=== PATIENT | male | born 2000 | race Caucasian/White ===

== ENCOUNTER 2021-05-29 21:41 | Emergency (ER) | payer OTHER, SELFPAY ==
[2021-05-29 22:06] VITALS: BP 143/74; PULSE 98; RESP 18; TEMP 36.6; O2SAT 99; BMI 23.4
[2021-05-29 23:58] VITALS: BP 119/70; PULSE 76; RESP 14; O2SAT 99
--- NOTE | 2021-05-29 23:59 | PC.NURSE ---
This RN and Dr Orozco to bedside for rectal exam.
--- NOTE | 2021-05-30 | ED_ITS ---
HPI - General Adult General Chief complaint: GI Bleed Stated complaint: rectal bleeding Time Seen by Provider: 05/29/21 23:58 Source: patient Mode of arrival: ambulatory History of Present Illness HPI narrative: 20-year-old male without significant past medical history but has had a prior episode of isolated rectal bleeding and was worked up at that acute findings were noted. Patient states that this evening he had a bowel movement which involved him having some difficulty and then afterwards noted blood in the toilet but not mixed with stool. Otherwise he denies rectal pain at that time eyes abdominal pain as well as no nausea or vomiting. Patient is unsure of any family history of IBD. Patient states that the blood was only on the toilet paper and there has been no contamination of his clothing. Related Data Allergies Allergy/AdvReac Type Severity Reaction Status Date / Time No Known Allergies Allergy Unverified 04/15/20 17:01 Review of Systems Review of Systems: Pertinent positives and negatives as stated in HPI 10 point review of systems is otherwise negative. PMFSH Past Medical History Source: nursing notes reviewed Medical History No known health problems Social History Social History Patient Tobacco Use Status: Never used Tobacco Use of substances other than those prescribed or required for medical reasons: No Physical Exam Vital Signs: Vital Signs: Last Vital Signs Temp 97.8 F 05/29/21 22:06 Pulse 76 05/29/21 23:58 Resp 14 05/29/21 23:58 BP 119/70 05/29/21 23:58 Pulse Ox 99 05/29/21 23:58 Body Mass Index 23.4 VITAL SIGNS: Reviewed. GENERAL: Well developed, well nourished, in no acute distress. HEAD: Normocephalic/atraumatic EYES: PERRLA, EOMI OROPHARYNX: no oral lesions noted, posterior pharynx clear LUNGS: Normal breath sounds. No adventitious sounds or accessory muscle use. SpO2<99> CARDIOVASCULAR: Regular rate and rhythm without noted murmurs ABDOMEN: Soft, non-tender, non-distended with bowel sounds. [place]: No inflamed external hemorrhoids noted, no fissures, no inflamed internal hemorrhoids and there is brown stool without gross blood and good rectal tone. NEUROLOGIC: Alert and oriented x 4. Course Course Course Narrative: 20-year-old male with history and clinical presentation consistent with hemorrhoidal bleeding and no evidence of persistence. No evidence of thrombosed hemorrhoid. Review of all investigations without acute findings, specifically guaiac of stool is negative. Patient informed of all results and recommended to follow-up with his primary care provider in the morning for further outpatient management. Medical Decision Making Lab Data Result diagrams: 05/30/21 00:05 05/30/21 00:05 Labs: Lab Results 05/30/21 05/30/21 05/30/21 Range/Units 00:05 00:05 00:05 WBC 10.5 (4.8-10.8) X10*3/uL RBC 6.37 H (4.60-5.80) X10*6/uL Hgb 13.1 L (14.0-18.0) g/dl Hct 42.1 (42.0-52.0) % MCV 66.1 L (80.0-98.0) fL MCH 20.6 L (27.0-33.0) pg MCHC 31.1 (31.0-36.0) g/dl RDW 15.9 (11.0-16.0) % Plt Count 192 (160-400) X10*3/uL MPV Not Reportable Immature Gran % (Auto) 0.2 (0.0-0.4) % Neut % (Auto) 61.5 (45-73) % Lymph % (Auto) 30.3 (20-40) % [place] % (Auto) 6.7 (2-11) % Eos % (Auto) 1.0 (0-4) % Baso % (Auto) 0.3 (0-2) % Lymph # (Auto) 3.2 (1.2-4.9) X10*3/uL [place] # (Auto) 0.7 (0.1-1.2) X10*3/uL Eos # (Auto) 0.1 (0.0-0.4) X10*3/uL Baso # (Auto) 0.0 (0.0-0.2) X10*3/uL Abs Immat Gran (auto) 0.02 (0.00-0.03) X10*3/uL Absolute Neuts (auto) 6.44 (2.0-8.3) x10*3/uL Absolute Nucleated RBC 0.000 (0.0-0.012) X10*3/uL Nucleated RBC % (auto) 0.0 (0.0-0.2) /100WBC Sodium 141 (135-145) mmol/L Potassium 3.5 (3.3-5.1) mmol/L Chloride 108 (96-108) mmol/L Carbon Dioxide 24 (22-29) mmol/L Anion Gap 13 (12-20) BUN 8 L (9-16) mg/dL Creatinine 0.94 (0.5-1.4) mg/dL Estim Creat Clear Calc 109.9 Estimated GFR > 60 Random Glucose 90 (60-115) mg/dL Calcium 9.3 (8.4-10.2) mg/dL Total Bilirubin 0.5 (0.0-1.0) mg/dL AST 14 (5-37) U/L ALT 9 (0-40) U/L Alkaline Phosphatase 65 (39-117) U/L Total Protein 7.2 (6.5-8.0) g/dL Albumin 4.8 (3.5-5.0) g/dL Stool Occult Blood NEGATIVE (NEGATIVE) Discharge Plan Discharge Clinical Impression: Hematochezia, Hemorrhoids Patient Disposition: Home, Self-Care Instructions: Rectal Bleeding (ED) Additional Instructions: Call your primary care provider in the morning and set up an appointment for re- evaluation and discussion about further outpatient management/workup. Return to the ER for worsening of symptoms. Referrals: Kandice Stock MD [Physician] - 2 days (Isolated episode of painless rectal bleeding, guaiac negative)
[2021-05-30 00:12] LABS: Basophils Percent Auto 0.3 % (0-2); Hematocrit 42.1 % (42.0-52.0); Hemoglobin 13.1 g/dl (14.0-18.0); Imm Gran Abs Auto 0.02 X10*3/uL (0.00-0.03); Imm Gran Pct Auto 0.2 % (0.0-0.4); MANUAL DIFF FLAG SCAN; Mean Corpuscular HGB Conc 31.1 g/dl (31.0-36.0); Mean Corpuscular Hemoglobin 20.6 pg (27.0-33.0); Mean Corpuscular Volume 66.1 fL (80.0-98.0); OBS Int Ctl Valid YES; OBS1 NEGATIVE (NEGATIVE); Red Blood Count 6.37 X10*6/uL (4.60-5.80); SCAN SMEAR FLAG 1
[2021-05-30 00:14] LABS: Eosinophils Absolute Auto 0.1 X10*3/uL (0.0-0.4); Lymphocytes Absolute Auto 3.2 X10*3/uL (1.2-4.9); Lymphocytes Percent Auto 30.3 % (20-40); Monocytes Absolute Auto 0.7 X10*3/uL (0.1-1.2); Monocytes Percent Auto 6.7 % (2-11); Neutrophils Absolute Auto 6.44 x10*3/uL (2.0-8.3); Neutrophils Percent Auto 61.5 % (45-73); Platelet Count 192 X10*3/uL (160-400); Red Cell Distribution Width 15.9 % (11.0-16.0); White Blood Count 10.5 X10*3/uL (4.8-10.8)
[2021-05-30 00:19] LABS: PLT ABN DIST 1
[2021-05-30 00:35] LABS: Alanine Aminotransferase 9 U/L (0-40); Albumin Level 4.8 g/dL (3.5-5.0); Alkaline Phosphatase 65 U/L (39-117); Anion Gap 13 (12-20); Aspartate Amino Transferase 14 U/L (5-37); Bilirubin Total 0.5 mg/dL (0.0-1.0); Blood Urea Nitrogen 8 mg/dL (9-16); Calcium 9.3 mg/dL (8.4-10.2); Carbon Dioxide 24 mmol/L (22-29); Chloride 108 mmol/L (96-108); Creatinine Clr Calc Pharmacy 109.9; Estimated Glomerular Filt Rate > 60; Glucose Random 90 mg/dL (60-115); Potassium 3.5 mmol/L (3.3-5.1); Sodium 141 mmol/L (135-145); Total Protein 7.2 g/dL (6.5-8.0)
[2021-05-30 00:36] LABS: SLIDE REVIEW VERIFIED
== END 2021-05-30 01:16 | disposition home or self-care (01) ==
LOC: HO.ED 05-30 00:50
PROVIDERS: Emergency Provider Student in an Organized Health Care Education/Training Program; PCP Pediatrics
DX: K92.1 Melena (principal); K64.9 Unspecified hemorrhoids
CPT/HCPCS: 36415; 80053; 82272; 85025; 99283; 99284

== ENCOUNTER 2021-12-15 09:11 | Outpatient (REF) | payer OTHER, SELFPAY ==
[2021-12-15 09:48] LABS: COVID-19 Test Negative (Negative); IDNOW Serial# 08D9AD1C
== END 2021-12-15 09:12 | disposition home or self-care (01) ==
LOC: HO.LAB 09:11
PROVIDERS: Visit Provider Internal Medicine
DX: Z20.822 Contact with and (suspected) exposure to COVID-19 (principal)
CPT/HCPCS: 87635; C9803

== ENCOUNTER 2022-12-04 09:04 | Emergency (ER) | payer OTHER, SELFPAY ==
[2022-12-04 09:29] VITALS: BP 114/62; PULSE 75; RESP 17; TEMP 36.6; O2SAT 99; BMI 23.3
[2022-12-04 10:03] VITALS: BP 117/71; PULSE 73; RESP 16; TEMP 36.7; O2SAT 100
--- NOTE | 2022-12-04 10:05 | ED_ITS ---
HPI - Abdominal Pain General Chief Complaint: Abdominal Pain Stated Complaint: abd pain Time Seen by Provider: 12/04/22 10:01 Source: patient Mode of arrival: ambulatory Limitations: no limitations History of Present Illness HPI narrative: 22 yo male presents to the ER for evaluation of abdominal pain, nausea, vomiting and diarrhea for the last 3 days. he states he developed periumbilical abdominal pain that is intermittent on Sunday night. He had 2 episodes of vomiting on Sunday and 1 episode of vomiting yesterday. He also had a few episodes of diarrhea both days, last episode of diarrhea was yesterday. It was nonbloody. He denies any fever or chills associated. He has no associated nausea, vomiting or diarrhea today. He states several members of his work team had similar symptoms last week. He was told to see a doctor for medical clearance to come back to work. He states he is no longer having the periumbilical abdominal pain and is starting to feel better. MD elicited complaint: abdominal pain and other (N/V/D) Pertinent past history: none Onset (ago): day(s) (3) Pain Consistency: now resolved Location: periumbilical Severity: mild Quality: cramping and aching Radiation: none Exacerbating factors: nothing Relieving factors: nothing Context: sick contacts Associated symptoms: nausea, vomiting and diarrhea Related Data Previous Rx's Medication Instructions Recorded ondansetron 4 mg disintegrating 4 mg PO Q8H PRN nausea and 12/04/22 tablet vomiting #5 tabs Allergies Allergy/AdvReac Type Severity Reaction Status Date / Time No Known Allergies Allergy Verified 12/04/22 09:29 Review of Systems Review of Systems Yes all other systems are reviewed and are negative [facility] Past Medical History Medical History No known health problems Social History Social History Patient Tobacco Use Status: Never used Tobacco Smoked in Last 30 Days: No Use of substances other than those prescribed or required for medical reasons: No Advance Directives: No Advance Directives Information Provided: Yes Physical Exam ED Vital Signs: Vital Signs - 24 hr 12/04/22 09:29 12/04/22 10:03 Temperature 98 F 98.1 F Pulse Rate 75 73 Respiratory Rate 17 16 Blood Pressure 114/62 117/71 Pulse Oximetry 99 100 Oxygen Delivery Method Room Air Room Air BMI result Body Mass Index 23.3 Appearance: Alert. Oriented X3. No acute distress. Head: normocephalic, atraumatic. Eyes: Pupils equal, round and reactive to light. ENT: Pharynx normal. No tonsillar swelling or exudate. Neck: Normal inspection. Neck supple. CVS: Normal heart rate and rhythm. Pulses normal. Respiratory: No respiratory distress. Breath sounds normal. Abdomen: Soft and nontender. +BS x4 Skin: Skin warm and dry. Normal skin color. Normal skin turgor. No rashes. Extremities: No lower extremity edema. No joint swelling. Neuro/psych: Oriented X 3. No motor deficit. No sensory deficit. CN II-XII intact. Normal speech and cognition. Medical Decision Making Medical Decision Making [facility] Narrative: 22-year-old male presents to the ER for evaluation of 3 days of nausea, vomiting, diarrhea, intermittent periumbilical abdominal pain. Less episodes of vomiting and diarrhea were yesterday evening. He is no longer having pain. His lab workup was unremarkable. No evidence of dehydration. He is tolerating p.o. here. His abdominal exam is benign. He is stable for discharge home. His symptoms are most likely due to a viral gastroenteritis. Pt counseled on symptomatic management. P.r.n. Zofran sent to the pharmacy. Stable for discharge home. Workup provided per request. Differential Diagnosis Differential Diagnoses: The differential diagnosis associated with the presentation includes Viral gastroenteritis, bacterial gastroenteritis, colitis, less likely cholecystitis, appendicitis or obstruction Lab Data [facility] Lab Attestation statement: I reviewed the patient's lab results. Unremarkable. No evidence of dehydration. 12/04/22 10:20 12/04/22 10:20 Labs: Lab Results 12/04/22 12/04/22 Range/Units 10:20 10:20 WBC 5.4 (4.8-10.8) X10*3/uL RBC 6.37 H (4.60-5.80) X10*6/uL Hgb 12.9 L (14.0-18.0) g/dl Hct 42.3 (42.0-52.0) % MCV 66.4 L (80.0-98.0) fL MCH 20.3 L (27.0-33.0) pg MCHC 30.5 L (31.0-36.0) g/dl RDW 16.4 H (11.0-16.0) % Plt Count 170 (160-400) X10*3/uL MPV Not Reportable Immature Gran % (Auto) 0.2 (0.0-0.4) % Neut % (Auto) 57.7 (45-73) % Lymph % (Auto) 33.6 (20-40) % [place] % (Auto) 6.8 (2-11) % Eos % (Auto) 1.3 (0-4) % Baso % (Auto) 0.4 (0-2) % Lymph # (Auto) 1.8 (1.2-4.9) X10*3/uL [place] # (Auto) 0.4 (0.1-1.2) X10*3/uL Eos # (Auto) 0.1 (0.0-0.4) X10*3/uL Baso # (Auto) 0.0 (0.0-0.2) X10*3/uL Abs Immat Gran (auto) 0.01 (0.00-0.03) X10*3/uL Absolute Neuts (auto) 3.1 (2.0-8.3) x10*3/uL Absolute Nucleated RBC 0.000 (0.0-0.012) X10*3/uL Nucleated RBC % (auto) 0.0 (0.0-0.2) /100WBC Sodium 140 (135-145) mmol/L Potassium 4.0 (3.3-5.1) mmol/L Chloride 109 H (96-108) mmol/L Carbon Dioxide 24 (22-29) mmol/L Anion Gap 11 L (12-20) BUN 12 (9-16) mg/dL Creatinine 0.96 (0.5-1.4) mg/dL Estim Creat Clear Calc 105.8 Estimated GFR > 60 Random Glucose 93 (60-115) mg/dL Calcium 9.6 (8.4-10.2) mg/dL Total Bilirubin 0.8 (0.0-1.0) mg/dL Direct Bilirubin 0.2 (0.0-0.5) mg/dL AST 16 (5-37) U/L ALT 18 (0-40) U/L Alkaline Phosphatase 53 (39-117) U/L Total Protein 7.0 (6.5-8.0) g/dL Albumin 4.5 (3.5-5.0) g/dL Lipase 10 (8-78) U/L External Record Review External record reviewed: Outpatient record and Prior outpatient labs Prescription Management I considered prescription management with: Other ( Antiemetics) Critical Care Time Critical Care Time Critical Care Time: No Discharge Plan Discharge Clinical Impression: Gastroenteritis Patient Disposition: Home, Self-Care Instructions: Gastroenteritis (DC) Additional Instructions: You lab workup today was unremarkable. You most likely have a viral GI bug also known as gastroenteritis. Treatment is supportive care, symptoms usually resolve on their own in 48-72 hours. Recommend rest and plenty of oral hydration. Stick to a bland diet like soup and toast while you are not feeling well. Take the prescribed medication as needed for nausea. Recommend over the counter Pepto Bismol or Imodium for upset stomach and diarrhea. Follow up with your doctor as needed. If you develop new or worsening symptoms call 911 or come back to the ER for further evaluation. Prescriptions: New ondansetron 4 mg tablet,disintegrating 4 mg PO Q8H PRN (Reason: nausea and vomiting) Qty: 5 0RF Stand Alone Forms: Work/School Release
[2022-12-04 10:23] LABS: MANUAL DIFF FLAG NO
[2022-12-04 10:27] LABS: Basophils Percent Auto 0.4 % (0-2); Eosinophils Absolute Auto 0.1 X10*3/uL (0.0-0.4); Eosinophils Percent Auto 1.3 % (0-4); Hematocrit 42.3 % (42.0-52.0); Hemoglobin 12.9 g/dl (14.0-18.0); Imm Gran Abs Auto 0.01 X10*3/uL (0.00-0.03); Imm Gran Pct Auto 0.2 % (0.0-0.4); Lymphocytes Absolute Auto 1.8 X10*3/uL (1.2-4.9); Lymphocytes Percent Auto 33.6 % (20-40); Mean Corpuscular HGB Conc 30.5 g/dl (31.0-36.0); Mean Corpuscular Hemoglobin 20.3 pg (27.0-33.0); Mean Corpuscular Volume 66.4 fL (80.0-98.0); Monocytes Absolute Auto 0.4 X10*3/uL (0.1-1.2); Monocytes Percent Auto 6.8 % (2-11); Neutrophils Absolute Auto 3.1 x10*3/uL (2.0-8.3); Neutrophils Percent Auto 57.7 % (45-73); Platelet Count 170 X10*3/uL (160-400); Red Blood Count 6.37 X10*6/uL (4.60-5.80); Red Cell Distribution Width 16.4 % (11.0-16.0); White Blood Count 5.4 X10*3/uL (4.8-10.8)
[2022-12-04 10:50] LABS: Alanine Aminotransferase 18 U/L (0-40); Albumin Level 4.5 g/dL (3.5-5.0); Alkaline Phosphatase 53 U/L (39-117); Anion Gap 11 (12-20); Aspartate Amino Transferase 16 U/L (5-37); Bilirubin Direct 0.2 mg/dL (0.0-0.5); Bilirubin Total 0.8 mg/dL (0.0-1.0); Blood Urea Nitrogen 12 mg/dL (9-16); Calcium 9.6 mg/dL (8.4-10.2); Carbon Dioxide 24 mmol/L (22-29); Chloride 109 mmol/L (96-108); Creatinine Clr Calc Pharmacy 105.8; Estimated Glomerular Filt Rate > 60; Glucose Random 93 mg/dL (60-115); Lipase 10 U/L (8-78); Sodium 140 mmol/L (135-145)
== END 2022-12-04 11:17 | disposition home or self-care (01) ==
PROVIDERS: Emergency Provider Emergency Medicine; PCP Pediatrics
DX: K52.9 Noninfective gastroenteritis and colitis, unspecified (principal); Z79.899 Other long term (current) drug therapy
CPT/HCPCS: 36415; 80048; 80076; 83690; 85025; 99283; 99284